=== PATIENT | male | born 1950 | race Caucasian/White ===

== ENCOUNTER 2016-06-19 15:20 | Inpatient (IN) | payer MEDICARE ==
[~2016-06-19] VITALS: Ht 180.3 cm; Wt 61.7 kg
[2016-06-19] MEDS ORDERED: OPTIRAY 350 100 ML VIAL HMH IV ONE (15:21)
[2016-06-19] MEDS ORDERED: METHYLPRED SOD SUCC 125 MG/2 ML VIAL ONE (16:35)
[2016-06-19] MEDS ORDERED: DUONEB INH ONE ×2 (16:37→16:38)
[2016-06-19] MEDS ORDERED: MAG HYDROX 30 ML UDC PO PRN (20:45)
[2016-06-19] MEDS ORDERED: SALINE FLUSH 10 ML FLUSH PRN (20:45)
[2016-06-19] MEDS ORDERED: ONDANSETRON 4 MG VIAL IV PRN (20:45)
[2016-06-19] MEDS ORDERED: DUONEB INH PRN (20:45)
[2016-06-19] MEDS ORDERED: BISACODYL 10 MG SUPP RECTAL PRN (20:45)
[2016-06-19] MEDS ORDERED: TEMAZEPAM 15 MG CAP PO PRN (20:45)
[2016-06-19] MEDS ORDERED: BISACODYL EC 5 MG TAB PO PRN (20:45)
[2016-06-19] MEDS ORDERED: ALU/MAG/SIM 30 ML UDC PO PRN (20:45)
[2016-06-19] MEDS ORDERED: GUAIFEN/DM 10 ML UDC PO PRN (20:45)
[2016-06-19] MEDS ORDERED: CARDIZEM 1 MG/ML DRIP 125 ML IV SCH (20:55)
[2016-06-19 21:41] VITALS: BP_SYST 102; RESP 18; TEMP 97.6
[2016-06-19 21:42] VITALS: BP_SYST 116; Ht 180.3 cm; Wt 61.7 kg
[2016-06-19] MEDS: FAMOTIDINE 20 MG TAB PO SCH (22:12)
[2016-06-19] MEDS: METOPROLOL TART 50 MG TAB PO SCH (22:12)
[2016-06-19] MEDS: PRAVASTATIN 20 MG TAB PO SCH (22:12)
[2016-06-19] MEDS: TRAZODONE 50 MG TAB PO SCH (22:13)
[2016-06-19] MEDS: *HOME MEDS KEPT IN PHARMACY XX SCH (22:13)
[2016-06-19] MEDS: FERROUS SULF 325 MG TAB PO SCH (22:13)
[2016-06-19] MEDS: NEB-XOPENEX 1.25 MG/3 ML INH SCH (22:50)
[2016-06-19 22:51] VITALS: RESP 18
[2016-06-19 22:59] VITALS: BP_SYST 122; RESP 20; TEMP 97.4
[2016-06-19] MEDS: METHYLPRED SOD SUCC 40 MG VIAL IV SCH (23:33)
[2016-06-20] VITALS (25 sets, daily range): BP systolic 94–142; RESP 14–20; TEMP 97.3–98.6
[2016-06-20] MEDS: NEB-XOPENEX 1.25 MG/3 ML INH SCH ×2 (02:40→06:50)
[2016-06-20] MEDS: SODIUM CHLORIDE 0.9% FLUSH BAG 500 ML IV SCH (05:59)
[2016-06-20] MEDS ORDERED: MDI-SPIRIVA 5 DOSES INH SCH (07:00)
[2016-06-20] MEDS ORDERED: CITALOPRAM 20 MG TAB PO SCH (09:00)
[2016-06-20] MEDS ORDERED: ENOXAPARIN 40 MG/0.4 ML SYR SUBQ SCH (09:00)
[2016-06-20] MEDS: METHYLPRED SOD SUCC 40 MG VIAL IV SCH (09:16)
[2016-06-20] MEDS: SALINE FLUSH 10 ML FLUSH SCH ×2 (09:16→20:06)
[2016-06-20] MEDS: CEFTRIAXONE 1 GM in SODIUM CHLORIDE 0.9% 50 ML IV SCH (09:19)
[2016-06-20] MEDS: FERROUS SULF 325 MG TAB PO SCH ×3 (09:23→20:06)
[2016-06-20] MEDS: PRAMIPEXOLE 0.5 MG TAB PO SCH (09:23)
[2016-06-20] MEDS: BUSPIRONE HCL 15 MG TAB PO SCH (09:23)
[2016-06-20] MEDS: FAMOTIDINE 20 MG TAB PO SCH ×2 (09:23→20:06)
[2016-06-20] MEDS: METOPROLOL TART 50 MG TAB PO SCH ×2 (09:24→20:06)
[2016-06-20] MEDS: Furosemide 40 MG TAB PO SCH (09:24)
[2016-06-20] MEDS: DILTIAZEM CD 240 MG CAP PO SCH (09:24)
[2016-06-20] MEDS ORDERED: NICOTINE 21 MG/24 HR TRANSDERM SCH (10:25)
[2016-06-20] MEDS ORDERED: MISSING DOSE XX ONE (11:20)
[2016-06-20] MEDS: DUONEB INH SCH ×4 (11:35→22:45)
[2016-06-20] MEDS: NEB-BUDESONIDE 0.5 MG INH SCH ×2 (11:35→18:47)
[2016-06-20] MEDS: BENZONATATE 100 MG CAP PO SCH ×3 (11:59→20:06)
[2016-06-20] MEDS: DIGOXIN 0.125 MG TAB PO SCH (11:59)
[2016-06-20] MEDS ORDERED: WARFARIN 4 MG TAB PO SCH (16:00)
[2016-06-20] MEDS: *HOME MEDS KEPT IN PHARMACY XX SCH (20:00)
[2016-06-20] MEDS: PRAVASTATIN 20 MG TAB PO SCH (20:06)
[2016-06-21] MEDS: DUONEB INH SCH ×6 (02:55→23:00)
[2016-06-21 03:08] VITALS: BP_SYST 125; RESP 16; TEMP 97.9
[2016-06-21] MEDS: NEB-BUDESONIDE 0.5 MG INH SCH ×2 (05:21→19:57)
[2016-06-21] MEDS: SODIUM CHLORIDE 0.9% FLUSH BAG 500 ML IV SCH (05:56)
[2016-06-21] MEDS: *HOME MEDS KEPT IN PHARMACY XX SCH ×2 (07:03→20:00)
[2016-06-21 07:14] VITALS: BP_SYST 132; RESP 16; TEMP 97.5
[2016-06-21] MEDS: DILTIAZEM CD 240 MG CAP PO SCH (07:15)
[2016-06-21] MEDS: CEFTRIAXONE 1 GM in SODIUM CHLORIDE 0.9% 50 ML IV SCH (08:05)
[2016-06-21] MEDS: SALINE FLUSH 10 ML FLUSH SCH ×2 (08:05→20:54)
[2016-06-21] MEDS: PRAMIPEXOLE 0.5 MG TAB PO SCH (08:07)
[2016-06-21] MEDS: PREDNISONE 20 MG TAB PO SCH (08:07)
[2016-06-21] MEDS: METOPROLOL TART 50 MG TAB PO SCH (08:07)
[2016-06-21] MEDS: TRAZODONE 50 MG TAB PO SCH (08:07)
[2016-06-21] MEDS: FAMOTIDINE 20 MG TAB PO SCH ×2 (08:08→20:54)
[2016-06-21] MEDS: BUSPIRONE HCL 15 MG TAB PO SCH (08:08)
[2016-06-21] MEDS: FERROUS SULF 325 MG TAB PO SCH (08:08)
[2016-06-21] MEDS: Furosemide 40 MG TAB PO SCH (08:08)
[2016-06-21] MEDS: BENZONATATE 100 MG CAP PO SCH ×3 (08:08→20:54)
[2016-06-21] MEDS ORDERED: METOPROLOL TART 25 MG TAB PO ONE (09:25)
[2016-06-21] MEDS ORDERED: MISSING DOSE XX ONE ×2 (09:45→21:40)
[2016-06-21] MEDS: LISINOPRIL 2.5 MG TAB PO SCH (10:14)
[2016-06-21] MEDS: SUCRALFATE 1GM/10ML SUSP PO SCH ×2 (10:14→16:12)
[2016-06-21 11:14] VITALS: BP_SYST 96; RESP 16; TEMP 97.2
[2016-06-21] MEDS: DIGOXIN 0.125 MG TAB PO SCH (12:13)
[2016-06-21 15:22] VITALS: BP_SYST 91; RESP 18; TEMP 97.6
[2016-06-21 19:28] VITALS: BP_SYST 104; RESP 18; TEMP 97.8
[2016-06-21] MEDS: PRAVASTATIN 20 MG TAB PO SCH (20:54)
[2016-06-21] MEDS: METOPROLOL TART 25 MG TAB PO SCH (20:55)
[2016-06-21] MEDS ORDERED: SOD CHL NASAL SPR 45ML NARE EACH PRN (21:10)
[2016-06-21 23:02] VITALS: BP_SYST 128; RESP 16; TEMP 97.9
[2016-06-22] MEDS: DUONEB INH SCH ×3 (03:08→11:00)
[2016-06-22 03:52] VITALS: BP_SYST 116; RESP 18; TEMP 98.3
[2016-06-22] MEDS: NEB-BUDESONIDE 0.5 MG INH SCH (05:28)
[2016-06-22] MEDS: SODIUM CHLORIDE 0.9% FLUSH BAG 500 ML IV SCH (06:19)
[2016-06-22] MEDS: SUCRALFATE 1GM/10ML SUSP PO SCH (06:29)
[2016-06-22 07:17] VITALS: BP_SYST 131; RESP 18; TEMP 97.9
[2016-06-22] MEDS: *HOME MEDS KEPT IN PHARMACY XX SCH ×2 (08:00→10:28)
[2016-06-22] MEDS: SALINE FLUSH 10 ML FLUSH SCH (08:53)
[2016-06-22] MEDS: CEFTRIAXONE 1 GM in SODIUM CHLORIDE 0.9% 50 ML IV SCH (08:55)
[2016-06-22] MEDS: Furosemide 40 MG TAB PO SCH (08:57)
[2016-06-22] MEDS: DILTIAZEM CD 240 MG CAP PO SCH (08:57)
[2016-06-22] MEDS: PREDNISONE 20 MG TAB PO SCH (08:57)
[2016-06-22] MEDS: BUSPIRONE HCL 15 MG TAB PO SCH (08:57)
[2016-06-22] MEDS: LISINOPRIL 2.5 MG TAB PO SCH (08:57)
[2016-06-22] MEDS: BENZONATATE 100 MG CAP PO SCH (08:57)
[2016-06-22] MEDS: METOPROLOL TART 25 MG TAB PO SCH (08:57)
[2016-06-22] MEDS: FAMOTIDINE 20 MG TAB PO SCH (08:57)
[2016-06-22] MEDS ORDERED: FERROUS SULF 325 MG TAB PO SCH (09:00)
[2016-06-22 10:08] VITALS: BP_SYST 131; RESP 18; TEMP 97.9
[2016-06-22 10:15] VITALS: BP_SYST 131; RESP 18; TEMP 97.9
[2016-06-22] MEDS ORDERED: TRAZODONE 50 MG TAB PO SCH (21:00)
[2016-06-22] MEDS ORDERED: PRAMIPEXOLE 0.5 MG TAB PO SCH (21:00)
== END 2016-06-22 11:03 | disposition home or self-care (01) | DRG 189 ==
LOC: ER 15:20 → ENPENDDIS 19:36 → EMR 19:36 → PCU2 20:55
PROVIDERS: ADMIT Internal Medicine; ATTEND Internal Medicine
CPT/HCPCS: 36415; 71020; 71260; 80048; 80053; 80162; 81003; 82553; 83605; 83880; 84484; 85025; 85610; 87040; 93005; 93306; 94640; 94667; 94668; 94799; 96374; 99233; 99239